=== PATIENT | male | born 1945 | race Caucasian/White ===

== ENCOUNTER → 2016-06-25 | Outpatient (CLI) | payer BC ==
--- NOTE | 2016-06-25 09:15 | DIAGNOSTIC IMAGING REPORT ---
LEFT KNEE 4 VIEWS CLINICAL HISTORY: Left knee pain. FINDINGS: AP, lateral, tunnel, and sunrise views of left knee are obtained. No prior studies are available for comparison at the time of dictation. The skeletal structures are osteopenic. No fracture is seen. There is advanced narrowing at the patellofemoral articulation. Moderate narrowing is seen in the medial compartment and there is likely mild joint space narrowing in the lateral compartment. There are small marginal osteophytes, patellar enthesophytes, and degenerative beaking of the tibial spine. No evidence of osteochondral lesion is seen on the tunnel image. No significant joint effusion is identified. Mild prepatellar soft tissue swelling is noted. Atherosclerotic calcification is present in the popliteal artery. IMPRESSION: 1. Mild soft tissue swelling with no acute bony abnormality seen in the left knee. 2. Osteopenia and arthritic change as above. Electronically signed by: Kedar Fitzpatrick M.D. 06/25/2016 9:14 AM Dictated Date/Time: 06/25/2016 9:12 AM
== END | disposition home or self-care (01) ==
LOC: C.RADBC 08:42
PROVIDERS: ATTEND Internal Medicine
DX: M25.562 Pain in left knee (principal); M85.862 Other specified disorders of bone density and structure, left lower leg

== ENCOUNTER → 2016-10-10 | Outpatient (CLI) | payer BC ==
[2016-10-10 10:58] LABS: ALT/SGPT 36 U/L (12-78); AST/SGOT 26 U/L (15-37); BLOOD UREA NITROGEN 11 mg/dl (7-18); BUN/CREATININE RATIO 11.3 (10-20); CALCIUM 8.6 mg/dl (8.5-10.1); CARBON DIOXIDE 28 mmol/L (21-32); CHLORIDE 106 mmol/L (98-107); GLUCOSE 103 mg/dl (70-99); SODIUM 140 mmol/L (136-145)
[2016-10-10 11:04] LABS: ALB/GLOB RATIO 1.4 (0.9-2); ALKALINE PHOSPHATASE 69 U/L (45-117); CHOLESTEROL 204 mg/dl (0-200); CHOLESTEROL/HDL RATIO 3.8; HDL CHOLESTEROL 54 mg/dl; LDL CHOLESTEROL CALCULATED 108 mg/dl; TRIGLYCERIDES 209 mg/dl (0-150); VERY LOW DENSITY LIPOPROT CALC 42 mg/dl
== END | disposition home or self-care (01) ==
LOC: C.LAB1850 09:19
PROVIDERS: ATTEND Physician Assistant
DX: Z00.00 Encounter for general adult medical examination without abnormal findings (principal); E78.5 Hyperlipidemia, unspecified; I10 Essential (primary) hypertension

== ENCOUNTER → 2017-05-18 | Outpatient (CLI) | payer BC ==
--- NOTE | 2017-05-18 16:37 | DIAGNOSTIC IMAGING REPORT ---
L HIP UNILATERAL 2 VIEWS CLINICAL HISTORY: M25.552 Hip pain, [id number] pain COMPARISON: None. DISCUSSION: The bones and joint spaces appear intact. There is no evidence of fracture, dislocation or bony disease. There is no evidence for soft tissue swelling. IMPRESSION: Negative study. The above report was generated using voice recognition software. It may contain grammatical, syntax or spelling errors. Electronically signed by: Yasmani Lazo M.D. 05/18/2017 4:36 PM Dictated Date/Time: 05/18/2017 4:36 PM
--- NOTE | 2017-05-18 16:38 | DIAGNOSTIC IMAGING REPORT ---
R SHOULDER MIN 2 VIEWS ROUTINE CLINICAL HISTORY: M25.552 Hip pain, leftM25.511 Right shoulder [id number] pain COMPARISON: None. DISCUSSION: Moderate degenerative change glenohumeral and acromioclavicular joints. No acute bony abnormality. No lytic or blastic process. No evidence for fracture or dislocation. There is no evidence for soft tissue swelling. IMPRESSION: Moderate degenerative change right shoulder. No acute bony abnormality. The above report was generated using voice recognition software. It may contain grammatical, syntax or spelling errors. Electronically signed by: Yasmani Lazo M.D. 05/18/2017 4:37 PM Dictated Date/Time: 05/18/2017 4:36 PM
== END | disposition home or self-care (01) ==
LOC: C.RADBC 16:18
PROVIDERS: ATTEND Nurse Practitioner Adult Health
DX: M25.511 Pain in right shoulder (principal); M25.552 Pain in left hip; M89.8X1 Other specified disorders of bone, shoulder

== ENCOUNTER → 2017-06-28 | Outpatient (CLI) | payer BC | END | disposition home or self-care (01) | LOC: C.LAB1850 11:55 | PROVIDERS: ATTEND Nurse Practitioner Adult Health | DX: J02.9 Acute pharyngitis, unspecified (principal); Z20.818 Contact with and (suspected) exposure to other bacterial communicable diseases ==

== ENCOUNTER → 2017-08-14 | Outpatient (CLI) | payer BC ==
[2017-08-14 10:47] LABS: ALBUMIN 3.9 gm/dl (3.4-5.0); AST/SGOT 24 U/L (15-37); BLOOD UREA NITROGEN 12 mg/dl (7-18); CARBON DIOXIDE 31 mmol/L (21-32); CREATININE 1.02 mg/dl (0.60-1.40); GLUCOSE 105 mg/dl (70-99); POTASSIUM 3.8 mmol/L (3.5-5.1); SODIUM 140 mmol/L (136-145)
[2017-08-14 10:54] LABS: ALKALINE PHOSPHATASE 87 U/L (45-117); ALT/SGPT 36 U/L (12-78); CHOLESTEROL 187 mg/dl (0-200); LDL CHOLESTEROL CALCULATED 106 mg/dl; TOTAL PROTEIN 7.5 gm/dl (6.4-8.2)
[2017-08-14 11:07] LABS: HEMOGLOBIN A1C 5.7 % (4.5-5.6)
== END | disposition home or self-care (01) ==
LOC: C.LABBC 07:56
PROVIDERS: ATTEND Nurse Practitioner Adult Health
DX: Z00.00 Encounter for general adult medical examination without abnormal findings (principal); I10 Essential (primary) hypertension; E78.5 Hyperlipidemia, unspecified; R73.01 Impaired fasting glucose